=== PATIENT | female | born 1985 | race Caucasian/White ===

== ENCOUNTER → 2024-07-05 | Outpatient (CLI) | payer BC ==
[2024-07-05 08:47] VITALS: BP 120/80; PULSE 76; RESP 16; TEMP 98.6
--- NOTE | 2024-07-05 09:19 | P.HPOB ---
History of Present Illness H&P Date: 07/05/24 Chief Complaint: The patient is here for her routine gynecologic exam. This is a 39-year-old -0-1-2 with an LMP of 06/07/2024. Patient is here to establish with this office. It has been about 3 or 4 years since her last pelvic exam. She uses condoms for control and she is not interested in any other form of control at this time. Her menstrual periods are regular every month. She is without gynecologic complaints. Review of Systems The patient's weight has been stable over the last year. She denies respiratory, cardiac, or G.I. problems. Past Medical History Past Medical History: Hyperlipidemia (Not requiring medications at this time.), Rheumatoid Arthritis (RA) Additional Past Medical History / Comment(s): Juvenile rheumatoid arthritis. Hypothyroidism. Seasonal allergies. 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 History of Any Multi-Drug Resistant Organisms: None Reported Past Surgical History: Appendectomy, Tonsillectomy Past Anesthesia/Blood Transfusion Reactions: No Reported Reaction Past Psychological History: No Psychological Hx Reported Smoking Status: Former smoker Past Alcohol Use History: Occasional (1-2 drinks per month.) Additional Past Alcohol Use History / Comment(s): Quit smoking in 2012. Past Drug Use History: None Reported Additional History: She has been since 2010. 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 - Past Family History Mother Additional Family Medical History / Comment(s): Myasthenia gravis. Maternal grandmother has lupus and had an DE. Father Family Medical History: Cancer Additional Family Medical History / Comment(s): Colon cancer. Maternal grandmother had colon and breast cancer. Brother(s) Family Medical History: Liver Disease Additional Family Medical History / Comment(s): A liver condition that required a liver and kidney transplant. Medications and Allergies Home Medications Medication Instructions Recorded Confirmed Type Fexofenadine/Pseudoephedrine 1 tab PO DAILY 07/05/24 07/05/24 History [Ana Maria-D 24 Hour Tablet] Levothyroxine Sodium [Synthroid] 50 mcg PO DAILY 07/05/24 07/05/24 History Allergies Allergy/AdvReac Type Severity Reaction Status Date / Time No Known Allergies Allergy Unverified 07/05/24 08:36 Exam Vital Signs Temp Pulse Resp BP Pulse Ox 07/05/24 08:38 98.6 F 76 16 120/80 97 Intake and Output 07/04/24 07/05/24 07/05/24 22:59 06:59 14:59 Other: Weight 84.822 kg Height 5 feet 9 inches, weight 187 pounds, BMI 27.6. This is a well-developed well-nourished white female who is alert and oriented times 3 in no acute distress. HEENT: Within normal limits. NECK: Supple without mass or thyromegaly. CHEST AND LUNGS: Clear to auscultation. HEART: Regular rate and rhythm. BREASTS: Are without mass or discharge. AXILLARY EXAM: Negative for adenopathy. BACK: Negative for CVA tenderness. ABDOMEN: Soft, nontender, without palpable masses. PELVIC EXAM: Normal external genitalia. Cervix and vagina appear normal. There is no unusual discharge. There is no evidence of prolapse. The uterus is retroverted, nongravid size and nontender. There are no palpable adnexal masses or tenderness. RECTAL EXAM: negative for mass or tenderness. EXTREMITIES: Nontender. IMPRESSION: 1. 39-year-old gynecologically healthy female using condoms for control, with normal gynecologic exam. PLAN: 1. Pap smear cotest was performed. 2. Self breast awareness was discussed with the patient. We have also discussed symptoms associated with inflammatory breast cancer. 3. Screening mammograms will be started at age 40. We will plan on doing this next year at her annual well woman visit. 4. Osteoporosis prevention was discussed. I have stressed the importance of adequate calcium, vitamin D and regular exercise. Recommended amounts of calcium and vitamin D were also discussed. 5. We have discussed various methods of control including male and female sterilization, IUD, and oral contraception. She would like to continue using condoms at this time. She was instructed to call if she wants to talk about other methods of control. She understands that condoms have a higher failure rate compared to several other methods of control and I have recommended that she take a daily multivitamin, since this could decrease the risk for certain defects if she did get . 6. She was advised to return in one year for her annual well woman exam.
== END ==
LOC: WWCWWP 08:18
PROVIDERS: ATTEND Obstetrics & Gynecology
DX: Z01.419 Encounter for gynecological examination (general) (routine) without abnormal findings (principal); Z87.891 Personal history of nicotine dependence